=== PATIENT | male | born 1975 | race African-American/Black ===

== ENCOUNTER 2017-07-23 00:37 | Emergency (ER) | payer SELFPAY ==
[2017-07-23] MEDS ORDERED: Ibuprofen 800 MG TAB ONE (01:04)
== END 2017-07-23 01:07 | disposition home or self-care (01) ==
LOC: MADERS 00:37
DX: S83.92XA Sprain of unspecified site of left knee, initial encounter (principal); D50.0 Iron deficiency anemia secondary to blood loss (chronic); K21.9 Gastro-esophageal reflux disease without esophagitis; I10 Essential (primary) hypertension; Z79.899 Other long term (current) drug therapy; X58.XXXA Exposure to other specified factors, initial encounter
CPT/HCPCS: 99283

== ENCOUNTER 2018-03-10 08:35 | Emergency (ER) | payer SELFPAY | END 2018-03-10 09:24 | disposition home or self-care (01) | LOC: MADERS 08:35 | DX: H83.8X2 Other specified diseases of left inner ear (principal); K21.9 Gastro-esophageal reflux disease without esophagitis; I10 Essential (primary) hypertension; D50.9 Iron deficiency anemia, unspecified; Z79.899 Other long term (current) drug therapy | CPT/HCPCS: 99281 ==

== ENCOUNTER 2021-03-11 23:44 | Emergency (ER) | payer SELFPAY ==
[2021-03-12] MEDS ORDERED: Dexamethasone 4 MG TAB ONE (00:38)
[2021-03-12] MEDS ORDERED: Ibuprofen 800 MG TAB ONE (00:38)
== END 2021-03-12 01:00 | disposition home or self-care (01) ==
LOC: MADERS 23:44
DX: M71.22 Synovial cyst of popliteal space [Baker], left knee (principal); I10 Essential (primary) hypertension; K21.9 Gastro-esophageal reflux disease without esophagitis; E61.1 Iron deficiency; Z79.899 Other long term (current) drug therapy
CPT/HCPCS: 99283; J8540

== ENCOUNTER 2021-12-14 20:30 | Emergency (ER) | payer SELFPAY ==
[2021-12-14 21:20] LABS: Hemoglobin 11.7 g/dL (14.0-18.0); MDiff Complete? YES; Mean Corpuscular HGB CONC 29.7 g/dL (32.0-36.0); Mean Corpuscular Hemoglobin 21.9 pg (27.0-31.0); Mean Corpuscular Volume 73.5 fL (78.0-98.0); Ovalocytes SLIGHT = 2-5 cells (100X) (0-1/hpf); Platelet Count 23 thou/uL (130-400); Platelet Morphology Comment Appears Decreased; RBC Distribution Width 13.1 % (11.5-14.5); Red Blood Cell (RBC) Count 5.35 mill/uL (4.70-6.10); Reflex for Review?? YES; Tear Drops SLIGHT = 2-5 cells (100X) (0-1/hpf); White Blood Cell (WBC) Count 12.7 thou/uL (4.8-10.8)
[2021-12-14 21:26] LABS: ALT (SGPT) 21 U/L (8-55); AST (SGOT) 21 U/L (5-34); Albumin 3.8 g/dL (3.5-5.0); Alkaline Phosphatase 54 U/L (40-110); Anion Gap 14 mmol/L (10-20); BUN (Urea Nitrogen) 19 mg/dL (8.9-20.6); Bilirubin, Total 0.5 mg/dL (0.2-1.2); Calc. Creatinine Clearance 0 mL/min (70-130); Calcium 9.3 mg/dL (7.8-10.44); Carbon Dioxide 26 mmol/L (22-29); Chloride 102 mmol/L (98-107); Estimated GFR 63; Globulin 4.2 g/dL (2.4-3.5); Glucose 115 mg/dL (70-105); Potassium 3.7 mmol/L (3.5-5.1); Sodium 138 mmol/L (136-145)
[2021-12-14 21:27] LABS: Eosinophils 2 % (0-10); Lymphocytes 23 % (21-51); Monocytes 12 % (0-10); Neutrophil 62 % (42-75); Reactive Lymphocytes 1 % (0-10)
[2021-12-14 21:56] LABS: #Basophils 0.1 thou/uL (0.0-0.2); #Eosinphils 0.2 thou/uL (0.0-0.7); #Lymphocytes 1.8 thou/uL (1.20-3.40); #Monocytes 1.5 thou/uL (0.11-0.59); #Neutrophils 8.4 thou/uL (1.40-6.50); %Basophils 0.9 % (0.0-1.0); %Eosinophils 1.9 % (0.0-10.0); %Lymphocytes 14.6 % (21.0-51.0); %Monocytes 12.4 % (0.0-10.0); %Neutrophils 70.2 % (42.0-75.0); Hemoglobin 11.7 g/dL (14.0-18.0); Mean Corpuscular HGB CONC 29.6 g/dL (32.0-36.0); Mean Corpuscular Hemoglobin 21.9 pg (27.0-31.0); Mean Corpuscular Volume 73.8 fL (78.0-98.0); Platelet Count 19 thou/uL (130-400); RBC Distribution Width 13.1 % (11.5-14.5); Red Blood Cell (RBC) Count 5.36 mill/uL (4.70-6.10)
== END 2021-12-14 23:43 | disposition short-term general hospital (02) ==
LOC: MADERS 20:30
DX: D69.6 Thrombocytopenia, unspecified (principal); M54.2 Cervicalgia; K21.9 Gastro-esophageal reflux disease without esophagitis; Z79.899 Other long term (current) drug therapy
CPT/HCPCS: 36415; 70360; 80053; 85025; 85060; 93005

== ENCOUNTER 2023-03-22 19:13 | Emergency (ER) | payer OTHER ==
[2023-03-22] MEDS ORDERED: Ibuprofen 800 MG TAB ONE (20:33)
== END 2023-03-22 20:50 | disposition home or self-care (01) ==
LOC: MADERS 19:13
DX: M54.50 Low back pain, unspecified (principal); K21.9 Gastro-esophageal reflux disease without esophagitis; D46.9 Myelodysplastic syndrome, unspecified; I10 Essential (primary) hypertension; Z79.899 Other long term (current) drug therapy
CPT/HCPCS: 72110

== ENCOUNTER 2023-03-23 11:04 | Outpatient (CLI) | payer OTHER | END 2023-03-23 11:05 | disposition home or self-care (01) | LOC: MADRAD 11:04 | PROVIDERS: ATTEND Internal Medicine | DX: R05.1 Acute cough (principal) | CPT/HCPCS: 71046 ==

== ENCOUNTER 2025-01-22 15:13 | Emergency (ER) | payer OTHER, SELFPAY ==
[~2025-01-22 15:13] MED LIST: Iopamidol 370 76% 100 ML VIAL ONE
[2025-01-22] MEDS ORDERED: Ketorolac Tromethamine 30 MG (1 mL) VIAL ONE (16:53)
[2025-01-22 16:56] LABS: Hematocrit 44.6 % (42.0-52.0); Hemoglobin 13.1 g/dL (14.0-18.0); Mean Corpuscular Hemoglobin 22.0 pg (27.0-31.0); Mean Corpuscular Volume 75.0 fl (78.0-98.0); Platelet Count 367 10x3/uL (130-400); Red Blood Cell (RBC) Count 5.95 mill/uL (4.70-6.10); White Blood Cell (WBC) Count 9.2 10x3/uL (4.8-10.8)
[2025-01-22 17:00] LABS: ALT (SGPT) 27 U/L (Less than 45); AST (SGOT) 30 U/L (11-34); Albumin 3.9 g/dL (3.1-4.5); Alkaline Phosphatase 61 U/L (40-110); Anion Gap 14 mmol/L (10-20); BUN (Urea Nitrogen) 15 mg/dL (8.9-20.6); Bilirubin, Total 0.5 mg/dL (0.3-1.2); Calc. Creatinine Clearance 0 mL/min (70-130); Calcium 9.2 mg/dL (7.8-10.44); Carbon Dioxide 25 mmol/L (22-29); Chloride 101 mmol/L (98-107); Globulin 4.2 g/dL (2.4-3.5); Glucose 82 mg/dL (70-105); Potassium 4.1 mmol/L (3.5-5.1); Sodium 136 mmol/L (136-145)
[2025-01-22 17:04] LABS: MDiff Complete? YES; Manual Diff?? YES
[2025-01-22 17:05] LABS: Microcytosis SLIGHT = 6-15 cells (100X) (0-5/hpf); Polychromasia SLIGHT = 2-3 cells (100X) (0-2/hpf)
[2025-01-22 17:06] LABS: Platelet Adequacy Comment Appears Adequate
== END 2025-01-22 17:40 | disposition home or self-care (01) ==
LOC: MADERS 15:13
DX: M43.6 Torticollis (principal); E66.9 Obesity, unspecified; I10 Essential (primary) hypertension; F17.290 Nicotine dependence, other tobacco product, uncomplicated
CPT/HCPCS: 70491; 80053; 85025; 96374; J1885; Q9967